=== PATIENT | male | born 1990 | race Caucasian/White ===

== ENCOUNTER 2016-07-13 23:41 | Emergency (ER) | payer OTHER ==
[2016-07-13 23:48] VITALS: BP 117/73; PULSE 76; TEMP 97.5; BMI 25.1
[2016-07-14] MEDS ORDERED: DEXAMETHASONE SOD PHOSPHATE 10 MG/1 ML VIAL IVPUSH ONE (00:02)
--- NOTE | 2016-07-14 00:08 | PDOC ---
History of Present Illness - General Chief Complaint: Sore Throat Stated Complaint: SORE THROAT Time Seen by Provider: 07/13/16 23:45 History Source: Patient Exam Limitations: No Limitations - History of Present Illness Initial Comments: 07/14/16 00:03 This is a 25-year-old male brought in by his parents for evaluation of sore throat and difficulty breathing. Patient has had symptoms for several days and that his sore throat has gotten progressively worse. Patient was seen by a friend of the family who is a physician and was started on a Z-Jose A yesterday. Patient is had a total of 2 days worth of the antibiotic. Patient was treated for presumptive strep pharyngitis. Patient symptoms have not gotten better and mom said this evening he was having some difficulty breathing so they brought him in for evaluation. On arrival here in the emergency room his symptoms had resolved after he was outside in the cool moist air. Mom said she has a human to fire but is not using it in his room at night. Otherwise he he did have a fever yesterday that was low-grade and today he has been taking Tylenol and Motrin throughout the day so has not had a fever today. He is otherwise healthy and his immunizations are up-to-date. PAST MEDICAL HISTORY: no significant history PAST SURGICAL HISTORY: no significant history FAMILY HISTORY: no pertinant history SOCIAL HISTORY: Pt lives with family and is employed. MEDICATIONS: reviewed ALLERGIES: As per nursing notes Review of Systems General: No fevers or chills, no weakness, no weight loss HEENT: Sore throat, fevers as per history of present illness CardioVascular: No chest pain, shortness of breath as per history of present illness Respiratory:No cough, or wheezing. Gastrointestinal: no nausea, vomitting, diarrhea or constipation, No rectal bleeding Genitourinary: No dysuria, hematuria, or frequency Musculoskeletal: No joint or muscle pain or swelling Neurologic: No headache, vertigo, dizziness or loss of consciousness Psychiatric: nor depression Skin: No rashes or easy bruising Endocrine: no increased thirst or abnormal weight change Allergic: no skin or latex allergy All other systems reviewed and normal Exam: General: Well-nourished well-developed individual, no acute distress HEENT: Throat: There is marked erythema of the posterior oropharynx with some enlargement of the tonsils however there is no peritonsillar abscess. There is moderate amount of exudate of the tonsils bilateral. Neck: Supple, no meningeal signs, there is bilateral submandibular lymphadenopathy. Eyes::Pupils equal reactive and round, extraocular motion intact Chest: Nontender to palpation Cardiac: S1-S2 normal, regular rate and rhythm, no murmurs rubs or gallops Respiratory: Lungs clear to auscultation bilateral Abdomen: Soft, nondistended, normal bowel sounds, nontender to palpation diffusely Extremities: Warm, dry, no cyanosis, clubbing, or edema Skin: No rashes Neuro: Alert and oriented x3, nonfocal exam, grossly intact, normal gait Psych: Normal mood and affect Assessment and plan: This is a 25-year-old male who is being treated with a Z- Jose A for presumptive strep pharyngitis. However he is not better after approximately 48 hours of treatment so was brought in for evaluation of his pharyngitis as well as he said that he was having some difficulty breathing. Here in the emergency room patient's O2 sat was normal his respiratory rate was normal and his lungs are clear. Patient sounded like he had some mild croup- type symptoms and I recommended to mom that he use a humidifier in his room at night. In addition to that he was given a dose of Decadron. A Monospot was sent as mono is a possibility. Patient was discharged prior to the mono resolved. Patient will call tomorrow for the result of his mono test. Past History - Past Medical History Allergies/Adverse Reactions: Allergies Allergy/AdvReac Type Severity Reaction Status Date / Time No Known Allergies Allergy Unverified 07/13/16 23:42 Home Medications: Ambulatory Orders NK [No Known Home Medication] 07/13/16 Other medical history: DENIES - Psycho/Social/Smoking Cessation Hx Anxiety: No Suicidal Ideation: No Smoking History: Current every day smoker Have you smoked in the past 12 months: Yes Number of Cigarettes Smoked Daily: 10 Information on smoking cessation initiated: Yes 'Breaking Loose' booklet given: 07/13/16 *Physical Exam - Vital Signs Last Vital Signs Temp Pulse Resp BP Pulse Ox 97.5 F L 76 16 117/73 100 07/13/16 23:45 07/13/16 23:45 07/13/16 23:45 07/13/16 23:45 07/13/16 23:45 *DC/Admit/Observation/Transfer Diagnosis at time of Disposition: Pharyngitis Qualifiers: Pharyngitis/tonsillitis etiology: unspecified etiology Qualified Code(s): J02.9 - Acute pharyngitis, unspecified - Discharge Dispostion Disposition: HOME Condition at time of disposition: Stable - Patient Instructions Additional Instructions: A mono test was sent the result will not be available tonight to call tomorrow afternoon for the result. If it is positive the treatment is supportive treatment only plenty of fluids, rest and avoiding activity that could result in a blow to the left upper quadrant of the abdomen. The mono test does take several days before will turn positive so if symptoms do not resolve with the antibiotic have them mono test repeated in a week if symptoms have not improved. Using humidifier in your room at night. Return to the emergency department immediately with ANY new, persistent or worsening symptoms. Continue any medications as previously prescribed by your physician. You should follow up with your primary doctor as soon as possible regarding today's emergency department visit. . Please make sure your doctor reviews the results of your emergency evaluation. Thank you for coming to the Emergency Department today for your care. It was a pleasure to see you today. Please note that your evaluation is INCOMPLETE until you follow-up with your doctor.
== END 2016-07-14 00:16 | disposition home or self-care (01) ==
LOC: FER 23:41
PROC: 3E033GC Introduction of Other Therapeutic Substance into Peripheral Vein, Percutaneous Approach (ICD-10-PCS; principal; 2016-07-13)
DX: J02.9 Acute pharyngitis, unspecified (principal); F17.210 Nicotine dependence, cigarettes, uncomplicated
CPT/HCPCS: 36415; 86308; 99281-25